=== PATIENT | male | born 1960 | race African-American/Black ===

== ENCOUNTER 2019-02-12 11:47 | Inpatient (IN) | payer OTHER ==
[2019-02-12 14:43] VITALS: BMI 27.1
--- NOTE | 2019-02-12 17:35 | HP ---
COWS - Scale Resting Pulse: 0= [place] 80 or Below Sweatin= Chills/Flushing Restless Observation: 1= Difficult to Sit Still Pupil Size: 1= Pupils >than Normal Bone or Joint Aches: 2= Severe Diffuse Aches Runny Nose/ Eye Tearin= Runny Nose/Eyes GI Upset > 30mins: 3= Vomiting/Diarrhea Tremor Observation: 2= Slight Tremor Visible Yawning Observation: 2= >3x During Session Anxiety or Irritability: 2=Irritable/Anxious Goose Flesh Skin: 0=Smooth Skin COWS Score: 16 CIWA Score Nausea/Vomitin Muscle Tremors: 2 Anxiety: 3 Agitation: 3 Paroxysmal Sweats: 1-Minimal Palms Moist Orientation: 0-Oriented Tacttile Disturbances: 1-Very Mild Itch/Numbness Auditory Disturbances: 0-None Visual Disturbances: 0-None Headache: 2-Mild CIWA-Ar Total Score: 14 - Admission Criteria OASAS Guidelines: Admission for Medically Managed Detox: Requires at least one of the followin. CIWA greater than 12 2. Seizures within the past 24 hours 3. Delirium tremens within the past 24 hours 4. Hallucinations within the past 24 hours 5. Acute intervention needed for co occurring medical disorder 6. Acute intervention needed for co occurring psychiatric disorder 7. Severe withdrawal that cannot be handled at a lower level of care (continued vomiting, continued diarrhea, abnormal vital signs) requiring intravenous medication and/or fluids 8. Admission ROS S - HPI Chief Complaint: i need help to stop using heroin,alcohol,cocaine Allergies/Adverse Reactions: Allergies Allergy/AdvReac Type Severity Reaction Status Date / Time No Known Allergies Allergy Verified 02/12/19 14:34 History of Present Illness: this 58years old male with heroin,alcohol,and cocaine dependence,seeking detox, withdrawal symptom, had previous admission in detox,last 01/30/14 to 02/05/16 relapsing borderlined dm fx of right knee at age [age] years old left knee replacement in 2017 nicotine dependence 5 cigarette longest period of sobriety 5 years plan for rehab bipolar disorder,depression asthma hypercholesterolemia hypothyroidism Exam Limitations: No Limitations - Ebola screening Have you traveled outside of the country in the last 21 days: No (N) Have you had contact with anyone from an Ebola affected area: No Do you have a fever: No - Review of Systems Constitutional: Chills, Loss of Appetite, Malaise, Night Sweats, Changes in sleep, Weakness EENT: reports: Tearing, Nose Congestion Respiratory: reports: No Symptoms reported Cardiac: reports: No Symptoms Reported GI: reports: Diarrhea, Nausea, Vomiting, Abdominal cramping : reports: No Symptoms Reported Musculoskeletal: reports: Back Pain, Joint Pain, Muscle Pain, Joint Stiffness, Other (fx of right knee at age of 12 left knee replacement in 2017) Integumentary: reports: Dryness Neuro: reports: Headache, Tremors Endocrine: reports: No Symptoms Reported, Other (borderlined dm) Hematology: reports: No Symptoms Reported Psychiatric: reports: No Sypmtoms Reported, Judgement Intact, Mood/Affect Appropiate, Orientated x3, Depressed (bipolar disorder), other Patient History - Patient Medical History Hx Anemia: No Hx Asthma: Yes (albuterol inhaler) Hx Chronic Obstructive Pulmonary Disease (COPD): No Hx Cancer: No Hx Cardiac Disorders: No Hx Congestive Heart Failure: No Hx Hypertension: No Hx Hypercholesterolemia: Yes (on med) Hx Pacemaker: No HX Cerebrovascular Accident: No Hx Seizures: No Hx Dementia: No Hx Diabetes: Yes (TYPE II) Hx Gastrointestinal Disorders: Yes (diarrhea) Hx Liver Disease: No Hx Genitourinary Disorders: No Hx Sexually Transmitted Disorders: Yes (Hx of gonnorhea) Hx Renal Disease (ESRD): No Hx Thyroid Disease: Yes (hypothyroidism) Hx Human Immunodeficiency Virus (HIV): No (last 2008 negative) Hx Hepatitis C: No Hx Depression: Yes Hx Suicide Attempt: No Hx Bipolar Disorder: Yes (AND ANXIETY - on med) Hx Schizophrenia: No Other Medical History: no sucidal,no homicidal,fx right knee,left knee replacement - Patient Surgical History Past Surgical History: Yes Hx Neurologic Surgery: No Hx Cataract Extraction: No Hx Cardiac Surgery: No Hx Lung Surgery: No Hx Breast Surgery: No Hx Breast Biopsy: No Hx Abdominal Surgery: No Hx Appendectomy: No Hx Cholecystectomy: No Hx Genitourinary Surgery: No Hx Section: No Hx Orthopedic Surgery: Yes (left knee october 17 2016, rt knee at 5th grade,) Other Surgical History: surgery for fx of left mandible in 2002 Anesthesia Reaction: No - PPD History Previous Implant?: Yes Documented Results: Negative w/proof Implanted On Prior R Admission?: Yes Date: 02/01/14 PPD to be Administered?: No - Smoking Cessation Smoking history: Current every day smoker Have you smoked in the past 12 months: Yes Aproximately how many cigarettes per day: 5 Hx Chewing Tobacco Use: No Initiated information on smoking cessation: Yes 'Breaking Loose' booklet given: 02/12/19 - Substance & Tx. History Hx Alcohol Use: Yes Hx Substance Use: Yes Substance Use Type: Alcohol, Heroin Hx Substance Use Treatment: Yes ([facility] 01/30/14 to 02/04/14) - Substances abused Alcohol Substance route: Oral Frequency: Daily Amount used: 6 pk beer 120z Age of first use: 17 Date of last use: 02/11/19 Heroin Substance route: Inhalation Frequency: Daily Amount used: 4 bags Age of first use: 15 Date of last use: 02/11/19 Family Disease History - Family Disease History Family History: Denies Admission Physical Exam S - Vital Signs Vital Signs: Vital Signs - 24 hr 02/12/19 14:33 Temperature 97.8 F Pulse Rate 71 Respiratory 20 Rate Blood Pressure 107/70 - Physical General Appearance: Yes: Moderate Distress, Tremorous, Irritable, Sweating, Anxious HEENTM: Yes: Normal ENT Inspection, KAT, Pharynx Normal Respiratory: Yes: Lungs Clear, Normal Breath Sounds, No Respiratory Distress Neck: Yes: Within Normal Limits, Supple, Trachea in good position Breast: Yes: Within Normal Limits Cardiology: Yes: Within Normal Limits, Regular Rhythm, Regular Rate, S1, S2 Abdominal: Yes: Within Normal Limits, Normal Bowel Sounds, Non Tender, Flat, Soft Genitourinary: Yes: Within Normal Limits Back: Yes: Muscle Spasm Musculoskeletal: Yes: Back pain, Joint Stiffness (scar in both knee), Muscle Pain Extremities: Yes: Tremors (scar bot knees), Other Neurological: Yes: marketing communications leader II-XII NML intact, Fully Oriented, Alert, Motor Strength 5/5 Integumentary: Yes: Dry Lymphatic: Yes: Within Normal Limits - Diagnostic (1) Opioid dependence with withdrawal Current Visit: Yes Status: Acute (2) Alcohol dependence with uncomplicated withdrawal Current Visit: Yes Status: Acute (3) Cocaine dependence Current Visit: No Status: Active (4) DM Diabetes mellitus type 2 Current Visit: No Status: Active (5) Hypercholesterolemia Current Visit: No Status: Active (6) Hypothyroidism Current Visit: No Status: Active (7) bipolar disorder with depression Current Visit: No Status: Active (8) bph Current Visit: No Status: Active (9) old fx of right knee Current Visit: No Status: Active (10) s/p surgery of fx of mandible Current Visit: No Status: Active (11) History of left knee replacement Current Visit: Yes Status: Acute (12) Asthma Current Visit: Yes Status: Acute Cleared for Admission [facility] - Detox or Rehab [facility] Level of Care: Medically Managed Detox Regimen/Protocol: Methadone/Librium Breathalyzer - Breathalyzer Breathalyzer: 0 Urine Drug Screen - Test Device Lot number: [id number] Expiration date: 11/09/20 - Control Is test valid?: Yes - Results Drug screen NEGATIVE: No Urine drug screen results: JOSE-Cocaine, FEN-Fentanyl, MOP-Opiates, BUP-Suboxone Inpatient Rehab Admission - Rehab Decision to Admit Inpatient rehab admission?: No
[2019-02-12] MEDS ORDERED: IBUPROFEN 400 MG TABLET (FP) PO PRN (17:50)
[2019-02-12] MEDS ORDERED: MAGNESIUM HYDROX 2400MG/30ML ORAL SUSPENSION 30 ML CUP PO PRN (17:50)
[2019-02-12] MEDS ORDERED: MENTHOL/PHENOL 1 EACH UD MM PRN (17:50)
[2019-02-12] MEDS ORDERED: ACETAMINOPHEN 325 MG TABLET (FP) PO PRN ×2 (17:50)
[2019-02-12] MEDS ORDERED: cloNIDine HCL 0.1 MG TABLET PO PRN (17:50)
[2019-02-12] MEDS ORDERED: METHADONE HCL 10 MG TABLET (FOR DETOX USE ONLY) PO ONE (17:50)
[2019-02-12] MEDS ORDERED: MAG HYDROX/AL HYDROX/SIMETH 30 ML UNIT-DOSE CUP PO PRN (17:50)
[2019-02-12] MEDS ORDERED: METHOCARBAMOL 500 MG TABLET PO PRN (17:50)
[2019-02-12] MEDS ORDERED: chlordiazePOXIDE HCL 10 MG CAPSULE PO PRN (17:50)
[2019-02-12] MEDS ORDERED: MAGNESIUM CITRATE 300 ML BOTTLE PO PRN (17:50)
[2019-02-12] MEDS ORDERED: hydrOXYzine HCL 25 MG TABLET (FP) PO PRN (17:50)
[2019-02-12] MEDS ORDERED: BISMUTH SUBSALICYLATE 524 MG/30 ML UD PO PRN (17:50)
[2019-02-12] MEDS ORDERED: ALBUTEROL SO4 8 GM HFA INHALER IH PRN (17:57)
[2019-02-12] MEDS: MELATONIN 5 MG TABLETS PO PRN (22:38)
[2019-02-12] MEDS: THIAMINE HCL 100 MG TABLET (FP) PO SCH (22:38)
[2019-02-12] MEDS: chlordiazePOXIDE HCL 25 MG CAPSULE PO SCH (22:38)
[2019-02-13] MEDS: LEVOTHYROXINE NA 200 MCG TABLET PO SCH (06:01)
[2019-02-13] MEDS: chlordiazePOXIDE HCL 25 MG CAPSULE PO SCH ×3 (06:02→23:09)
--- NOTE | 2019-02-13 09:40 | CONSULT ---
[facility] Psychiatric Consult - Data Date of interview: 02/13/19 Admission source: [facility] Identifying data: Patient is a 58 year old single male, father of seven, unemployed, homeless, and is not currently receiving financial assistance (SSI is suspended). This is one of multiple admissions for patient. Patient admitted to for alcohol, opiate, and cocaine dependence. Substance Abuse History: Smoking Cessation. Smoking history: Current every day smoker. Have you smoked in the past 12 months: Yes. Aproximately how many cigarettes per day: 5. Hx Chewing Tobacco Use: No. Initiated information on smoking cessation: Yes. 'Breaking Loose' booklet given: 02/12/19. - Substance & Tx. History. Hx Alcohol Use: Yes. Hx Substance Use: Yes. Substance Use Type : Alcohol, Heroin. Hx Substance Use Treatment: Yes ([facility] 01/30/14 to 02/04/14). - Substances abused. Alcohol. Substance route: Oral. Frequency: Daily. Amount used: 6 pk beer 120z. Age of first use: 17. Date of last use: . Heroin. Substance route: Inhalation. Frequency: Daily. Amount used: 4 bags. Age of first use: 15. Date of last use: 02/11/19 Medical History: Asthma, Hypercholesterolemia, Hx of gonnorhea, hypothyroidism, S/P fracture right knee and left knee replacement, type II diabetes, surgery for fx of left mandible in 2002 Psychiatric History: Mr. Worrell reports history of four psychiatric hospitalizations most recently five years ago at [facility] for depression. Patient is also known to [facility]. Reports a diagnosis of Bipolar disorder. Patient was released from incarceration on October 29 after being arrested for selling illicit substances. He reports taking wellbutrin 300mg XL + Risperdal 3mg HS. After his release he continued to receive his prescriptions of psychotropic medications from his primary care physician. States he last took wellbutrin 300mg XL yesterday morning and risperdal 3mg two nights ago as he did not receive it last night. As per Dr. Alvarado's note in 2013 patient has been treated with Wellbutrin XL 150 mg po daily, Trazadone 200 mg po HS, Saphris 10 mg po HS, Benadryl 50 mg po HS and Klonopin 2 mg po HS. At present, patient reports stable mood. He denies thoughts or urges to hurt self or others. Mental Status Exam - Mental Status Exam Alert and Oriented to: Time, Place, Person Cognitive Function: Good Patient Appearance: Well Groomed Mood: Euthymic Affect: Mood Congruent Patient Behavior: Cooperative Speech Pattern: Appropriate Voice Loudness: Normal Thought Process: Goal Oriented Thought Disorder: Not Present Hallucinations: Denies Suicidal Ideation: Denies Homicidal Ideation: Denies Insight/Judgement: Poor Sleep: Poorly Appetite: Fair Muscle strength/Tone: Normal Gait/Station: Normal Psychiatric Findings - Problem List ([place] 1, 2,3) (1) Alcohol dependence with uncomplicated withdrawal Current Visit: Yes Status: Acute (2) Opioid dependence with withdrawal Current Visit: Yes Status: Acute (3) Cocaine dependence Current Visit: Yes Status: Acute (4) Bipolar II disorder Current Visit: Yes Status: Chronic - Initial Treatment Plan Initial Treatment Plan: Psychoeducation provided. Detoxification in progress. Will order Wellbutrin 300mg XL + Risperdal 3mg HS. Benefits and side effects discussed. Verbal consent given.
[2019-02-13] MEDS ORDERED: METHADONE HCL 5 MG TABLET (FOR DETOX USE ONLY) PO ONE (10:00)
[2019-02-13] MEDS: PRENATAL VITAMINS W/ FOLIC ACID TABLET (FP) PO SCH (10:51)
[2019-02-13] MEDS: ASPIRIN 81 MG CHEWABLE TABLETS PO SCH (10:51)
[2019-02-13 11:41] LABS: ALBUMIN 2.8 g/dl (3.4-5.0); BILIRUBIN,TOTAL 0.4 mg/dL (0.2-1); BLOOD UREA NITROGEN 12.7 mg/dL (7-18); CALCIUM 8.4 mg/dL (8.5-10.1); POTASSIUM 4.4 mmol/L (3.5-5.1); TOT PROT 5.7 g/dl (6.4-8.2)
[2019-02-13 11:44] LABS: HEMATOCRIT 36.4 % (35.4-49); HEMOGLOBIN 12.2 GM/dL (11.7-16.9); MCH 30.1 pg (25.7-33.7); MCHC 33.5 g/dl (32.0-35.9); MEAN CELL VOLUME 89.8 fl (80-96); MEAN PLT VOLUME 8.5 fl (7.5-11.1); PLATELET COUNT 260 K/MM3 (134-434); RBC 4.06 M/mm3 (4.00-5.60); RDW 13.9 % (11.9-15.9); WHITE BLOOD COUNT 4.7 K/mm3 (4.0-10.0)
--- NOTE | 2019-02-13 15:28 | PN ---
[facility] CIWA - CIWA Score Nausea/Vomitin-Mild Nausea/No Vomiting Muscle Tremors: 4-Moderate,w/Arms Extend Anxiety: 3 Agitation: 3 Paroxysmal Sweats: 3 Orientation: 0-Oriented Tacttile Disturbances: 0-None Auditory Disturbances: 0-None Visual Disturbances: 0-None Headache: 0-None Present CIWA-Ar Total Score: 14 BHS COWS - Scale Resting Pulse: 0= [place] 80 or Below Sweatin= Chills/Flushing Restless Observation: 3= Extraneous Movement Pupil Size: 0= Normal to Room Light Bone or Joint Aches: 2= Severe Diffuse Aches Runny Nose/ Eye Tearin= Runny Nose/Eyes GI Upset > 30mins: 2= Nausea/Diarrhea Tremor Observation of Outstretched Hands: 2= Slight Tremor Visible Yawning Observation: 0= None Anxiety or Irritability: 2=Irritable/Anxious Goose Flesh Skin: 0=Smooth Skin COWS Score: 14 S Progress Note (SOAP) Subjective: Interrupted sleep Objective: 02/13/19 15:27 Last Vital Signs Temp Pulse Resp BP Pulse Ox 98.4 F 64 16 119/53 L 02/13/19 13:31 02/13/19 13:31 02/13/19 13:31 02/13/19 13:31 Laboratory Tests 02/13/19 02/13/19 02/13/19 08:00 08:00 08:00 WBC 4.7 RBC 4.06 Hgb 12.2 Hct 36.4 MCV 89.8 MCH 30.1 MCHC 33.5 RDW 13.9 Plt Count 260 MPV 8.5 Sodium 140 Potassium 4.4 Chloride 107 Carbon Dioxide 28 Anion Gap 6 L BUN 12.7 Creatinine 1.0 Est GFR (CKD-EPI)AfAm 97.08 Est GFR (CKD-EPI)NonAf 83.76 Random Glucose 93 Calcium 8.4 L Total Bilirubin 0.4 AST 9 L ALT 14 Alkaline Phosphatase 127 H Total Protein 5.7 L Albumin 2.8 L RPR Titer Nonreactive HIV 1&2 Antibody Screen HIV P24 Antigen 02/13/19 08:00 WBC RBC Hgb Hct MCV MCH MCHC RDW Plt Count MPV Sodium Potassium Chloride Carbon Dioxide Anion Gap BUN Creatinine Est GFR (CKD-EPI)AfAm Est GFR (CKD-EPI)NonAf Random Glucose Calcium Total Bilirubin AST ALT Alkaline Phosphatase Total Protein Albumin RPR Titer HIV 1&2 Antibody Screen Cancelled HIV P24 Antigen Cancelled Labs reviewed Assessment: 02/13/19 15:28 Withdrawal sxs Plan: Continue detox Encouraged PO water intake
[2019-02-13] MEDS ORDERED: chlordiazePOXIDE 5 MG CAPSULE PO SCH (22:00)
[2019-02-13] MEDS: risperiDONE 1 MG TABLET (FP) PO SCH (22:28)
[2019-02-13] MEDS: THIAMINE HCL 100 MG TABLET (FP) PO SCH (22:28)
[2019-02-14] MEDS: LEVOTHYROXINE NA 200 MCG TABLET PO SCH (07:17)
[2019-02-14] MEDS: chlordiazePOXIDE 5 MG CAPSULE PO SCH ×3 (07:17→22:57)
[2019-02-14] MEDS ORDERED: METHADONE HCL 10 MG TABLET (FOR DETOX USE ONLY) PO ONE (10:00)
[2019-02-14] MEDS: PRENATAL VITAMINS W/ FOLIC ACID TABLET (FP) PO SCH (10:48)
[2019-02-14] MEDS: ASPIRIN 81 MG CHEWABLE TABLETS PO SCH (10:48)
[2019-02-14 10:58] LABS: EPI CELLS 3.9 /HPF (0-5/HPF); HYALINE CASTS 1 /lpf (0-8); PH,URINE 6.5 (5.0-8.0); URINE APPEARANCE CLEAR; URINE BACTERIA 2.2 /hpf (NEGATIVE); URINE BILIRUBIN NEGATIVE (NEGATIVE); URINE COLOR YELLOW; URINE GLUCOSE (UA) NEGATIVE (NEGATIVE); URINE KETONE NEGATIVE (NEGATIVE); URINE LEUK ESTERASE 2+ (NEGATIVE); URINE NITRITE NEGATIVE (NEGATIVE); URINE PROTEIN NEGATIVE (NEGATIVE); URINE RBC 0 /hpf (0-4); URINE UROBILINOGEN 0.2 mg/dL (0.2-1.0); URINE WBC 9 /hpf (0-5)
--- NOTE | 2019-02-14 14:49 | PN ---
S CIWA - CIWA Score Nausea/Vomitin-No Nausea/No Vomiting Muscle Tremors: 2 Anxiety: 3 Agitation: 0-Normal Activity Paroxysmal Sweats: No Perspiration Orientation: 2-Disoriented Date<2 days Tacttile Disturbances: 2-Mild Itch/Numbness/Burn Auditory Disturbances: 1-Very Mild Visual Disturbances: 2-Mild Sensitivity Headache: 0-None Present CIWA-Ar Total Score: 12 BHS COWS - Scale Resting Pulse: 0= [place] 80 or Below Sweatin= No chills or Flushing Restless Observation: 0= Sits Still Pupil Size: 0= Normal to Room Light Bone or Joint Aches: 0= None Runny Nose/ Eye Tearin= None GI Upset > 30mins: 0= None Tremor Observation of Outstretched Hands: 2= Slight Tremor Visible Yawning Observation: 1= 1-2x During Session Anxiety or Irritability: 2=Irritable/Anxious Goose Flesh Skin: 3=[place] COWS Score: 8 S Progress Note (SOAP) Subjective: Tremors, Fatigue, Anxious, Interrupted Sleep. Objective: PATIENT A & O X 2 (UNCERTAIN ABOUT CURRENT DAY / DATE). IN NO ACUTE DISTRESS. 02/14/19 14:50 Vital Signs Temperature 97.9 F 02/14/19 13:08 Pulse Rate 74 02/14/19 13:08 Respiratory Rate 18 02/14/19 13:08 Blood Pressure 108/68 02/14/19 13:08 O2 Sat by Pulse Oximetry (%) Laboratory Tests 02/13/19 02/13/19 02/13/19 08:00 08:00 08:00 WBC 4.7 RBC 4.06 Hgb 12.2 Hct 36.4 MCV 89.8 MCH 30.1 MCHC 33.5 RDW 13.9 Plt Count 260 MPV 8.5 Sodium 140 Potassium 4.4 Chloride 107 Carbon Dioxide 28 Anion Gap 6 L BUN 12.7 Creatinine 1.0 Est GFR (CKD-EPI)AfAm 97.08 Est GFR (CKD-EPI)NonAf 83.76 Random Glucose 93 Calcium 8.4 L Total Bilirubin 0.4 AST 9 L ALT 14 Alkaline Phosphatase 127 H Total Protein 5.7 L Albumin 2.8 L Urine Color Urine Appearance Urine pH Ur Specific [place] Urine Protein Urine Glucose (UA) Urine Ketones Urine Blood Urine Nitrite Urine Bilirubin Urine Urobilinogen Ur Leukocyte Esterase Urine WBC (Auto) Urine RBC (Auto) Urine Casts (Auto) U Epithel Cells (Auto) Urine Bacteria (Auto) RPR Titer Nonreactive Hep C Ab Diagnostic HIV 1&2 Ag/Ab, 4th Gen HIV 1&2 Antibody Screen HIV P24 Antigen 02/13/19 02/13/19 02/13/19 08:00 08:00 10:00 WBC RBC Hgb Hct MCV MCH MCHC RDW Plt Count MPV Sodium Potassium Chloride Carbon Dioxide Anion Gap BUN Creatinine Est GFR (CKD-EPI)AfAm Est GFR (CKD-EPI)NonAf Random Glucose Calcium Total Bilirubin AST ALT Alkaline Phosphatase Total Protein Albumin Urine Color Urine Appearance Urine pH Ur Specific [place] Urine Protein Urine Glucose (UA) Urine Ketones Urine Blood Urine Nitrite Urine Bilirubin Urine Urobilinogen Ur Leukocyte Esterase Urine WBC (Auto) Urine RBC (Auto) Urine Casts (Auto) U Epithel Cells (Auto) Urine Bacteria (Auto) RPR Titer Hep C Ab Diagnostic <0.1 HIV 1&2 Ag/Ab, 4th Gen Non reactive HIV 1&2 Antibody Screen Cancelled HIV P24 Antigen Cancelled 02/14/19 08:25 WBC RBC Hgb Hct MCV MCH MCHC RDW Plt Count MPV Sodium Potassium Chloride Carbon Dioxide Anion Gap BUN Creatinine Est GFR (CKD-EPI)AfAm Est GFR (CKD-EPI)NonAf Random Glucose Calcium Total Bilirubin AST ALT Alkaline Phosphatase Total Protein Albumin Urine Color Yellow Urine Appearance Clear Urine pH 6.5 D Ur Specific [place] 1.008 L Urine Protein Negative Urine Glucose (UA) Negative Urine Ketones Negative Urine Blood Negative Urine Nitrite Negative Urine Bilirubin Negative Urine Urobilinogen 0.2 Ur Leukocyte Esterase 2+ H Urine WBC (Auto) 9 Urine RBC (Auto) 0 Urine Casts (Auto) 1 U Epithel Cells (Auto) 3.9 Urine Bacteria (Auto) 2.2 RPR Titer Hep C Ab Diagnostic HIV 1&2 Ag/Ab, 4th Gen HIV 1&2 Antibody Screen HIV P24 Antigen LABS NOTED. Assessment: 02/14/19 14:51 WITHDRAWAL SYMPTOMS. ELEVATED ALK. PHOS. LEVEL. Plan: CONTINUE DETOX. INCREASE DAILY PO WATER INTAKE. REPEAT UA FOR ADMISSION UA ABNORMALITIES.
[2019-02-14] MEDS: THIAMINE HCL 100 MG TABLET (FP) PO SCH (22:29)
[2019-02-14] MEDS: risperiDONE 1 MG TABLET (FP) PO SCH (22:57)
[2019-02-15] MEDS ORDERED: chlordiazePOXIDE HCL 10 MG CAPSULE PO PRN
[2019-02-15] MEDS ORDERED: chlordiazePOXIDE 5 MG CAPSULE ONE (05:41)
[2019-02-15] MEDS ORDERED: METHADONE HCL 5 MG TABLET (FOR DETOX USE ONLY) PO ONE (06:00)
[2019-02-15] MEDS: LEVOTHYROXINE NA 100 MCG TABLET (FP) PO SCH (08:11)
[2019-02-15] MEDS: chlordiazePOXIDE HCL 10 MG CAPSULE PO SCH ×3 (08:11→22:23)
--- NOTE | 2019-02-15 10:39 | PN ---
[facility] CIWA - CIWA Score Nausea/Vomitin-Mild Nausea/No Vomiting Muscle Tremors: 1-None Visible, but [place] Anxiety: 2 Agitation: 2 Paroxysmal Sweats: No Perspiration Orientation: 0-Oriented Tacttile Disturbances: 1-Very Mild Itch/Numbness Auditory Disturbances: 0-None Visual Disturbances: 0-None Headache: 2-Mild CIWA-Ar Total Score: 9 BHS COWS - Scale Resting Pulse: 1= [place] 81-100 Sweatin= Chills/Flushing Restless Observation: 1= Difficult to Sit Still Pupil Size: 1= Pupils >than Normal Bone or Joint Aches: 2= Severe Diffuse Aches Runny Nose/ Eye Tearin= Nasal Congestion GI Upset > 30mins: 1= Stomach Cramp Tremor Observation of Outstretched Hands: 1= Tremor [place], Not Seen Yawning Observation: 1= 1-2x During Session Anxiety or Irritability: 2=Irritable/Anxious Goose Flesh Skin: 0=Smooth Skin COWS Score: 12 [facility] Progress Note (SOAP) Subjective: alert,irritable,anxious,interrupted sleep,pain in the body Objective: 02/15/19 10:37 Vital Signs Temperature 98.5 F 02/15/19 09:20 Pulse Rate 87 02/15/19 09:20 Respiratory Rate 16 02/15/19 09:20 Blood Pressure 114/79 02/15/19 09:20 O2 Sat by Pulse Oximetry (%) Assessment: 02/15/19 10:38 withdrawal symptom Plan: continue detox,methadone and librium regimen
[2019-02-15] MEDS: ASPIRIN 81 MG CHEWABLE TABLETS PO SCH (10:52)
[2019-02-15] MEDS: PRENATAL VITAMINS W/ FOLIC ACID TABLET (FP) PO SCH (10:52)
[2019-02-15] MEDS: THIAMINE HCL 100 MG TABLET (FP) PO SCH (22:23)
[2019-02-15] MEDS: MELATONIN 5 MG TABLETS PO PRN (22:24)
[2019-02-15] MEDS: risperiDONE 1 MG TABLET (FP) PO SCH (22:24)
[2019-02-16] MEDS ORDERED: chlordiazePOXIDE HCL 10 MG CAPSULE PO ONE (05:00)
[2019-02-16] MEDS: LEVOTHYROXINE NA 100 MCG TABLET (FP) PO SCH (06:21)
[2019-02-16 09:27] VITALS: BP 95/68; PULSE 77; TEMP 98.8
--- NOTE | 2019-02-16 16:14 | DS ---
[facility] Detox Discharge Summary Admission Date: 02/12/19 Discharge Date: 02/16/19 - History Present History: Alcohol Dependence, Cocaine Dependence, Opioid Dependence Additional Comments: PATIENT RETURNING HOME. PATIENT ADVISED TO CONSIDER LOCAL 12-STEP / NA / AA OUTPATIENT SUPPORT GROUPS FOR AFTERCARE. PATIENT VERBALIZED UNDERSTANDING OF RECOMMENDATION. PATIENT WAS DISCHARGED FROM DETOX UNIT IN STABLE MEDICAL CONDITION. Pertinent Past History: Hypothyroidism, Hypercholesterolemia, Nicotine Dependence, DM, Bipolar II Disorder, Depression, Anxiety, BPH, History Of Fracture Of Right Knee, History Of Fracture Of Mandible (repaired with surgery), Asthma, History Of Left Knee Replacement. - Physical Exam Results Vital Signs: Vital Signs Temperature 98.8 F 02/16/19 09:26 Pulse Rate 77 02/16/19 09:26 Respiratory Rate 18 02/16/19 09:26 Blood Pressure 95/68 02/16/19 09:26 O2 Sat by Pulse Oximetry (%) Pertinent Admission Physical Exam Findings: WITHDRAWAL SYMPTOMS. Laboratory Tests 02/13/19 02/13/19 02/13/19 08:00 08:00 08:00 WBC 4.7 RBC 4.06 Hgb 12.2 Hct 36.4 MCV 89.8 MCH 30.1 MCHC 33.5 RDW 13.9 Plt Count 260 MPV 8.5 Sodium 140 Potassium 4.4 Chloride 107 Carbon Dioxide 28 Anion Gap 6 L BUN 12.7 Creatinine 1.0 Est GFR (CKD-EPI)AfAm 97.08 Est GFR (CKD-EPI)NonAf 83.76 Random Glucose 93 Calcium 8.4 L Total Bilirubin 0.4 AST 9 L ALT 14 Alkaline Phosphatase 127 H Total Protein 5.7 L Albumin 2.8 L Urine Color Urine Appearance Urine pH Ur Specific [place] Urine Protein Urine Glucose (UA) Urine Ketones Urine Blood Urine Nitrite Urine Bilirubin Urine Urobilinogen Ur Leukocyte Esterase Urine WBC (Auto) Urine RBC (Auto) Urine Casts (Auto) U Epithel Cells (Auto) Urine Bacteria (Auto) RPR Titer Nonreactive Hep C Ab Diagnostic HIV 1&2 Ag/Ab, 4th Gen HIV 1&2 Antibody Screen HIV P24 Antigen 02/13/19 02/13/19 02/13/19 08:00 08:00 10:00 WBC RBC Hgb Hct MCV MCH MCHC RDW Plt Count MPV Sodium Potassium Chloride Carbon Dioxide Anion Gap BUN Creatinine Est GFR (CKD-EPI)AfAm Est GFR (CKD-EPI)NonAf Random Glucose Calcium Total Bilirubin AST ALT Alkaline Phosphatase Total Protein Albumin Urine Color Urine Appearance Urine pH Ur Specific [place] Urine Protein Urine Glucose (UA) Urine Ketones Urine Blood Urine Nitrite Urine Bilirubin Urine Urobilinogen Ur Leukocyte Esterase Urine WBC (Auto) Urine RBC (Auto) Urine Casts (Auto) U Epithel Cells (Auto) Urine Bacteria (Auto) RPR Titer Hep C Ab Diagnostic <0.1 HIV 1&2 Ag/Ab, 4th Gen Non reactive HIV 1&2 Antibody Screen Cancelled HIV P24 Antigen Cancelled 02/14/19 08:25 WBC RBC Hgb Hct MCV MCH MCHC RDW Plt Count MPV Sodium Potassium Chloride Carbon Dioxide Anion Gap BUN Creatinine Est GFR (CKD-EPI)AfAm Est GFR (CKD-EPI)NonAf Random Glucose Calcium Total Bilirubin AST ALT Alkaline Phosphatase Total Protein Albumin Urine Color Yellow Urine Appearance Clear Urine pH 6.5 D Ur Specific [place] 1.008 L Urine Protein Negative Urine Glucose (UA) Negative Urine Ketones Negative Urine Blood Negative Urine Nitrite Negative Urine Bilirubin Negative Urine Urobilinogen 0.2 Ur Leukocyte Esterase 2+ H Urine WBC (Auto) 9 Urine RBC (Auto) 0 Urine Casts (Auto) 1 U Epithel Cells (Auto) 3.9 Urine Bacteria (Auto) 2.2 RPR Titer Hep C Ab Diagnostic HIV 1&2 Ag/Ab, 4th Gen HIV 1&2 Antibody Screen HIV P24 Antigen LABS NOTED. - Treatment Hospital Course: Detox Protocol Followed, Detoxed Safely, Responded well, Discharged Condition Good Patient has Accepted a Rehab Referral to: PT. DECLINED, ADVISED TO CONSIDER LOCAL 12-STEP/NA/AA OP SUPPORT GROUPS. - Medication Discharge Medications: Ambulatory Orders Aspirin [ASA -] 81 mg PO DAILY 09/15/12 Levothyroxine [Synthroid -] 200 mcg PO DAILY 09/15/12 Bupropion HCl [Wellbutrin Xl -] 300 mg PO DAILY 02/12/19 Risperidone [Risperdal] 3 mg PO HS 02/12/19 Risperidone [Risperdal] 3 mg PO HS 02/13/19 - Diagnosis (1) DM Diabetes mellitus type 2 Status: Active (2) Hypercholesterolemia Status: Active (3) Hypothyroidism Status: Active (4) bipolar disorder with depression Status: Active (5) bph Status: Active (6) old fx of right knee Status: Active (7) s/p surgery of fx of mandible Status: Active (8) Alcohol dependence with uncomplicated withdrawal Status: Acute (9) Asthma Status: Acute Qualifiers: Asthma severity: unspecified severity Asthma persistence: unspecified Asthma complication type: uncomplicated Qualified Code(s): J45.909 - Unspecified asthma, uncomplicated (10) Cocaine dependence Status: Acute (11) Elevated alkaline phosphatase level Status: Acute (12) History of left knee replacement Status: Acute (13) Opioid dependence with withdrawal Status: Acute (14) Bipolar II disorder Status: Chronic - AMA Did Patient Leave Against Medical Advice: No
== END 2019-02-16 09:40 | disposition home or self-care (01) | DRG 773 ==
LOC: YASAS 11:47 → Y6N 18:18
PROVIDERS: ADMIT Surgery; ATTEND Surgery
PROC: HZ2ZZZZ Detoxification Services for Substance Abuse Treatment (ICD-10-PCS; principal; 2019-02-12)
DX: F11.23 Opioid dependence with withdrawal (principal); F10.230 Alcohol dependence with withdrawal, uncomplicated; F14.20 Cocaine dependence, uncomplicated; F17.210 Nicotine dependence, cigarettes, uncomplicated; F31.81 Bipolar II disorder; F41.8 Other specified anxiety disorders; E03.9 Hypothyroidism, unspecified; E78.00 Pure hypercholesterolemia, unspecified; E11.9 Type 2 diabetes mellitus without complications; Z79.84 Long term (current) use of oral hypoglycemic drugs; J45.909 Unspecified asthma, uncomplicated; N40.0 Benign prostatic hyperplasia without lower urinary tract symptoms; Z96.652 Presence of left artificial knee joint; R74.8 Abnormal levels of other serum enzymes
CPT/HCPCS: 36415; 80053; 81003; 85027; 86593; 86803; 87389; J2794